=== PATIENT | female | born 1985 | race African-American/Black ===

== ENCOUNTER 2017-05-20 21:37 | Emergency (ER) | payer MEDICAID, OTHER ==
[~2017-05-20] VITALS: Ht 157.5 cm; Wt 104.0 kg
[2017-05-20 23:10] VITALS: BP 133/68
== END 2017-05-21 01:40 | disposition left against medical advice (07) ==
LOC: ER 05-21 00:52
DX: Z53.21 Procedure and treatment not carried out due to patient leaving prior to being seen by health care provider (principal)